=== PATIENT | female | born 1980 | race African-American/Black ===

== ENCOUNTER 2017-10-23 11:22 | Observation (INO) | payer MEDICAID ==
[~2017-10-23] VITALS: Ht 167.6 cm; Wt 112.0 kg
[2017-10-23] MEDS ORDERED: PREN-134 PO (12:18)
[2017-10-23] MEDS ORDERED: INSU100V3 SUBCUT (12:19)
[2017-10-23 14:42] LABS: CLARITY URINE CLEAR (CLEAR); COLOR URINE YELLOW (YELLOW); KETONES URINE NEGATIVE (NEGATIVE); LEUKOCYTE ESTERASE URINE NEGATIVE (NEGATIVE); NITRITE URINE NEGATIVE (NEGATIVE); OCCULT BLOOD URINE NEGATIVE (NEGATIVE); PROTEIN URINE NEGATIVE (NEGATIVE); SPECIFIC GRAVITY URINE 1.016 (1.005-1.030); UROBILINOGEN URINE 0.2 E.U./dL (0.2-1.0)
== END 2017-10-23 14:30 | disposition home or self-care (01) ==
LOC: L&D 11:22
PROVIDERS: ADMIT Obstetrics & Gynecology; ATTEND Obstetrics & Gynecology
DX: O62.9 Abnormality of forces of labor, unspecified (principal); Z3A.36 36 weeks gestation of pregnancy
CPT/HCPCS: 59025; 76805; 76818; 81003; G0378

== ENCOUNTER 2017-10-30 13:36 | Observation (INO) | payer MEDICAID ==
[~2017-10-30] VITALS: Ht 167.6 cm; Wt 114.3 kg
[~2017-10-30 13:36] MED LIST: INSU100V3 SUBCUT; PREN-134 PO
== END 2017-10-30 16:00 | disposition home or self-care (01) ==
LOC: L&D 13:36
PROVIDERS: ADMIT Obstetrics & Gynecology; ATTEND Obstetrics & Gynecology
DX: O24.419 Gestational diabetes mellitus in pregnancy, unspecified control (principal); Z3A.37 37 weeks gestation of pregnancy
CPT/HCPCS: 59025; 76815; 76818; G0378; 99281

== ENCOUNTER 2017-11-03 10:45 | Observation (INO) | payer MEDICAID ==
[~2017-11-03] VITALS: Ht 167.6 cm; Wt 114.3 kg
== END 2017-11-03 12:10 | disposition home or self-care (01) ==
LOC: L&D 10:45
PROVIDERS: ADMIT Obstetrics & Gynecology; ATTEND Obstetrics & Gynecology
DX: Z34.93 Encounter for supervision of normal pregnancy, unspecified, third trimester (principal); Z3A.38 38 weeks gestation of pregnancy
CPT/HCPCS: 59025; 76815; 76818; G0378

== ENCOUNTER 2017-11-06 11:18 | Observation (INO) | payer MEDICAID ==
[~2017-11-06] VITALS: Ht 167.6 cm; Wt 114.3 kg
== END 2017-11-06 12:47 | disposition home or self-care (01) ==
LOC: L&D 11:18
PROVIDERS: ADMIT Obstetrics & Gynecology; ATTEND Obstetrics & Gynecology
DX: Z34.93 Encounter for supervision of normal pregnancy, unspecified, third trimester (principal); Z3A.38 38 weeks gestation of pregnancy
CPT/HCPCS: 59025; 76815; 76818; G0378; 99281

== ENCOUNTER 2017-11-07 00:56 | Inpatient (IN) | payer MEDICAID ==
[~2017-11-07] VITALS: Ht 165.1 cm; Wt 114.3 kg
[2017-11-07] MEDS ORDERED: LACTATED RINGERS 1,000 ML IV SCH (01:53)
[2017-11-07] MEDS ORDERED: TERBUTALINE SULFATE 1MG/ML VIAL SUBCUT NR (02:00)
[2017-11-07] MEDS ORDERED: METHYLERGONOVINE MALEATE 0.2 MG/ML IM PRN (02:00)
[2017-11-07] MEDS ORDERED: CARBOPROST TROMETHAMINE 250 MCG/ML AMPUL IM PRN (02:00)
[2017-11-07] MEDS ORDERED: NALOXONE HCL 0.4 MG/ML 1ML VIAL IM PRN (02:00)
[2017-11-07] MEDS: LACTATED RINGERS 1,000 ML IV SCH (03:11)
[2017-11-07 04:59] LABS: CLARITY URINE CLEAR (CLEAR); COLOR URINE YELLOW (YELLOW); KETONES URINE 1+ (NEGATIVE); LEUKOCYTE ESTERASE URINE NEGATIVE (NEGATIVE); NITRITE URINE NEGATIVE (NEGATIVE); OCCULT BLOOD URINE NEGATIVE (NEGATIVE); PROTEIN URINE NEGATIVE (NEGATIVE); SPECIFIC GRAVITY URINE 1.008 (1.005-1.030); UROBILINOGEN URINE 0.2 E.U./dL (0.2-1.0)
[2017-11-07 05:36] LABS: *AMPHETAMINES SCREEN URINE NEGATIVE (NEGATIVE); *BARBITURATES SCREEN URINE NEGATIVE (NEGATIVE); *BENZODIAZEPINES SCREEN URINE NEGATIVE (NEGATIVE); *COCAINE SCREEN URINE NEGATIVE (NEGATIVE); METHADONE URINE SCREEN NEGATIVE (NEGATIVE); OPIATES URINE SCREEN NEGATIVE (NEGATIVE); PHENCYCLIDINE URINE SCREEN NEGATIVE (NEGATIVE)
[2017-11-07 05:37] LABS: CANNABINOID URINE SCREEN NEGATIVE (NEGATIVE)
[2017-11-07 05:43] LABS: BASOPHILS % 0.1 % (0.0-2.0); EOSINOPHILS % 0.5 % (0.0-5.0); HEMATOCRIT. 28.8 % (36.0-48.0); HEMOGLOBIN. 9.3 g/dL (12.0-16.0); LYMPHOCYTES % 14.1 % (20.0-50.0); MEAN CORPUSCULAR HEMOGLOBIN 27.7 pg (28.0-32.0); MEAN CORPUSCULAR VOLUME 86.1 fL (81.0-99.0); MEAN PLATELET VOLUME 7.1 fl (7.4-10.4); MONOCYTES % 9.3 % (2.0-8.0); PLATELET 313 x1000/uL (130-400); RED BLOOD CELL COUNT 3.35 mill/uL (4.2-5.4); RED CELL DISTRIBUTION WIDTH 18.2 % (11.6-14.6)
[2017-11-07 05:48] LABS: PARTIAL THROMBOPLASTIN TIME 33.8 sec (23.4-31.0); PROTHROMBIN TIME 10.1 sec (9.4-11.6)
[2017-11-07 06:50] LABS: RUBELLA IGG 51.1 IU/mL (4.99-10)
[2017-11-07 06:51] LABS: HEPATITIS B SURFACE ANTIGEN NEGATIVE
[2017-11-07] MEDS ORDERED: OXYTOCIN 10 UNITS/ML 1ML ONE (08:21)
[2017-11-07] MEDS ORDERED: MORPHINE SULFATE/PF 1MG/ML 10ML AMP ONE (08:21)
[2017-11-07] MEDS ORDERED: ONDANSETRON HCL 4MG/2ML VIAL ONE (08:21)
[2017-11-07] MEDS ORDERED: GLYCOPYRROLATE 0.2 MG/ML 2ML VIAL ONE (08:21)
[2017-11-07] MEDS ORDERED: FENTANYL CITRATE/PF 50MCG/ML 2ML VIAL ONE (08:21)
[2017-11-07] MEDS ORDERED: CEFAZOLIN SODIUM 1000MG/VIAL ONE (08:22)
[2017-11-07] MEDS ORDERED: DIPHENHYDRAMINE 50MG/ML VIAL ONE (08:22)
[2017-11-07] MEDS ORDERED: SODIUM CHLORIDE 0.9% 10ML VIAL ONE (09:32)
[2017-11-07] MEDS ORDERED: EPHEDRINE SULFATE 50MG/ML VIAL ONE (09:32)
[2017-11-07] MEDS ORDERED: MIDAZOLAM HCL 2 MG/2 ML VIAL ONE (09:58)
[2017-11-07] MEDS ORDERED: DIPHENHYDRAMINE 50MG/ML VIAL IV PRN ×2 (11:15→23:30)
[2017-11-07] MEDS ORDERED: NALOXONE HCL 0.4 MG/ML 1ML VIAL IV PRN (11:15)
[2017-11-07] MEDS ORDERED: BUTORPHANOL TARTRATE 2 MG/ML VIAL IV PRN (11:15)
[2017-11-07 13:30] VITALS: BP 104/44
[2017-11-07] MEDS: KETOROLAC 30MG/ML VIAL IV PRN (13:58)
[2017-11-07] MEDS: OXYTOCIN 20 UNITS in LACTATED RINGERS 1,000 ML IV SCH ×2 (15:07→20:04)
[2017-11-07 15:30] VITALS: BP 138/59
[2017-11-07] MEDS ORDERED: DEXT 5%/LR + PITOCIN 20UNITS/L 1,000 ML IV SCH (16:30)
[2017-11-07] MEDS ORDERED: HYDROCODONE/ACETAMINOPHEN 5/325MG TABLET PO PRN (16:45)
[2017-11-07] MEDS ORDERED: ONDANSETRON HCL 4MG/2ML VIAL IV PRN (16:45)
[2017-11-07] MEDS ORDERED: IBUPROFEN 400MG TABLET PO PRN (16:45)
[2017-11-07] MEDS ORDERED: LANOLIN OINT 0.25 GM TUBE TOP PRN (16:45)
[2017-11-07] MEDS ORDERED: RHO(D) IMMUNE GLOBULIN 300 MCG/SYR IM PRN (16:45)
[2017-11-07 20:00] VITALS: BP 124/67
[2017-11-07] MEDS: DOCUSATE SODIUM 100MG CAPSULE PO SCH (21:24)
[2017-11-07 23:40] VITALS: BP 134/62
[2017-11-08 04:05] VITALS: BP 122/71
[2017-11-08] MEDS: KETOROLAC 30MG/ML VIAL IV PRN ×2 (05:17→10:49)
[2017-11-08] MEDS: LACTATED RINGERS 1,000 ML IV SCH (05:19)
[2017-11-08 07:17] LABS: BASOPHILS % 0.2 % (0.0-2.0); EOSINOPHILS % 0.5 % (0.0-5.0); HEMOGLOBIN. 8.6 g/dL (12.0-16.0); LYMPHOCYTES % 7.9 % (20.0-50.0); MEAN CORPUSCULAR HEMOGLOBIN 28.1 pg (28.0-32.0); MEAN CORPUSCULAR VOLUME 85.6 fL (81.0-99.0); MEAN PLATELET VOLUME 7.1 fl (7.4-10.4); MONOCYTES % 9.9 % (2.0-8.0); NEUTROPHILS % 81.5 % (40.0-76.0); PLATELET 274 x1000/uL (130-400); RED BLOOD CELL COUNT 3.04 mill/uL (4.2-5.4); RED CELL DISTRIBUTION WIDTH 18.2 % (11.6-14.6)
[2017-11-08 08:00] VITALS: BP 116/51
[2017-11-08] MEDS: PRENATAL VIT/FE FUMARATE/FA TABLET PO SCH (09:16)
[2017-11-08 16:14] VITALS: BP 121/61
[2017-11-08 20:00] VITALS: BP 112/54
[2017-11-08] MEDS: DOCUSATE SODIUM 100MG CAPSULE PO SCH (20:37)
[2017-11-08] MEDS: HYDROCODONE/ACETAMINOPHEN 5/325MG TABLET PO PRN (20:37)
[2017-11-09] VITALS: BP 109/49
[2017-11-09 04:23] VITALS: BP 137/58
[2017-11-09] MEDS: HYDROCODONE/ACETAMINOPHEN 5/325MG TABLET PO PRN (04:34)
[2017-11-09 08:00] VITALS: BP 141/67
[2017-11-09] MEDS ORDERED: BISACODYL 10MG SUPP PR PRN (09:00)
[2017-11-09] MEDS: IBUPROFEN 800MG TABLET PO PRN ×2 (09:16→20:34)
[2017-11-09] MEDS: PRENATAL VIT/FE FUMARATE/FA TABLET PO SCH (09:16)
[2017-11-09 12:00] VITALS: BP 136/74
[2017-11-09 16:00] VITALS: BP 111/54
[2017-11-09] MEDS: DOCUSATE SODIUM 100MG CAPSULE PO SCH (20:33)
[2017-11-09 22:00] VITALS: BP 130/78
[2017-11-10 06:00] VITALS: BP 110/79
[2017-11-10 08:29] VITALS: BP 137/72
[2017-11-10] MEDS: IBUPROFEN 800MG TABLET PO PRN (08:32)
[2017-11-10] MEDS: PRENATAL VIT/FE FUMARATE/FA TABLET PO SCH (08:32)
== END 2017-11-10 11:25 | disposition home or self-care (01) | DRG 540 ==
LOC: OBSVTOIN 00:56 → L&D 00:56 → 7EST PP/OB 13:53
PROVIDERS: ADMIT Obstetrics & Gynecology; ATTEND Obstetrics & Gynecology
PROC: 10D00Z1 Extraction of Products of Conception, Low, Open Approach (ICD-10-PCS; principal; 2017-11-07)
DX: O34.211 Maternal care for low transverse scar from previous cesarean delivery (principal); D62 Acute posthemorrhagic anemia; O24.429 Gestational diabetes mellitus in childbirth, unspecified control; O99.214 Obesity complicating childbirth; Z68.41 Body mass index [BMI] 40.0-44.9, adult; E66.9 Obesity, unspecified; O99.03 Anemia complicating the puerperium; O77.0 Labor and delivery complicated by meconium in amniotic fluid; Z37.0 Single live birth; Z3A.39 39 weeks gestation of pregnancy
CPT/HCPCS: 36415; 80305; 81003; 82947; 82962; 85025; 85610; 85730; 86592; 86703; 86762; 86850; 86900; 87340; 88307; A4216; G0378; J0171; J0690; J1200; J1885; J2250; J2274; J2405; J2590; J3010; J3105; J3490; J7120

== ENCOUNTER 2020-10-21 12:10 | Emergency (ER) | payer MEDICAID ==
[~2020-10-21] VITALS: Ht 167.6 cm; Wt 111.0 kg
[~2020-10-21 12:10] MED LIST changes: +IBUP-2030 MT; -INSU100V3 SUBCUT
[2020-10-21] MEDS ORDERED: PRED5TAB PO (12:31)
[2020-10-21] MEDS ORDERED: HYDR25TA PO (12:31)
[2020-10-21 12:49] VITALS: BP 148/80
[2020-10-21] MEDS ORDERED: MAGNESIUM/ALUMINUM HYDROXIDE/SIMETHICONE 30ML UDC PO STA (12:59)
[2020-10-21 13:09] LABS: BASOPHILS % 0.5 % (0.0-2.0); EOSINOPHILS % 1.8 % (0.0-5.0); HEMATOCRIT. 38.2 % (36.0-48.0); HEMOGLOBIN. 12.6 g/dL (12.0-16.0); MEAN CORPUSCULAR HEMOGLOBIN 28.9 pg (28.0-32.0); MEAN CORPUSCULAR VOLUME 87.5 fL (81.0-99.0); MEAN PLATELET VOLUME 7.3 fl (7.4-10.4); NEUTROPHILS % 58.7 % (40.0-76.0); PLATELET 318 x1000/uL (130-400); RED BLOOD CELL COUNT 4.36 mill/uL (4.2-5.4); RED CELL DISTRIBUTION WIDTH 15.6 % (11.6-14.6)
[2020-10-21 13:20] LABS: CHLORIDE 104 mEq/L (98-107)
== END 2020-10-21 16:13 | disposition home or self-care (01) ==
LOC: ER 12:10
DX: R07.89 Other chest pain (principal); I10 Essential (primary) hypertension; Z98.890 Other specified postprocedural states; Z79.899 Other long term (current) drug therapy
CPT/HCPCS: 36415; 71045; 80053; 83605; 83880; 84484; 85025; 93005; 99285

== ENCOUNTER 2022-02-17 19:54 | Emergency (ER) | payer MEDICAID ==
[~2022-02-17] VITALS: Ht 167.6 cm; Wt 106.0 kg
[~2022-02-17 19:54] MED LIST changes: +HYDR25TA PO; -IBUP-2030 MT; +PRED5TAB PO; -PREN-134 PO
[2022-02-17] MEDS ORDERED: MECLIZINE 25MG TABLET PO ONE (21:15)
[2022-02-17] MEDS ORDERED: SODIUM CHLORIDE 0.9% 1,000 ML IV ONE (21:15)
[2022-02-18] MEDS ORDERED: MECLIZINE 25MG TABLET PO NR (00:15)
[2022-02-18 00:25] LABS: BASOPHILS % 0.2 % (0.0-2.0); EOSINOPHILS % 1.7 % (0.0-5.0); HEMOGLOBIN. 11.9 g/dL (12.0-16.0); LYMPHOCYTES % 25.8 % (20.0-50.0); MEAN CORPUSCULAR HEMOGLOBIN 29.9 pg (28.0-32.0); MEAN CORPUSCULAR VOLUME 90.2 fL (81.0-99.0); MONOCYTES % 3.9 % (2.0-8.0); NEUTROPHILS % 68.4 % (40.0-76.0); PLATELET 320 x1000/uL (130-400); RED BLOOD CELL COUNT 3.99 mill/uL (4.2-5.4); RED CELL DISTRIBUTION WIDTH 13.8 % (11.6-14.6)
[2022-02-18 00:33] LABS: CHLORIDE 104 mEq/L (98-107)
[2022-02-18 00:46] LABS: HCG SCREEN NEGATIVE
[2022-02-18] MEDS ORDERED: MECL-159 MT (02:21)
[2022-02-18 02:48] VITALS: BP 144/66
== END 2022-02-18 02:51 | disposition home or self-care (01) ==
LOC: ER 19:54
DX: R42 Dizziness and giddiness (principal); I10 Essential (primary) hypertension; Z68.37 Body mass index [BMI] 37.0-37.9, adult; Z98.890 Other specified postprocedural states
CPT/HCPCS: 36415; 71045; 80048; 84703; 85025; 93005; 96360; 99285; J7030; J8597